=== PATIENT | female | born 1990 | race Caucasian/White ===

== ENCOUNTER 2019-02-28 16:41 | Emergency (ER) | payer MEDICAID, OTHER ==
[~2019-02-28] VITALS: Ht 160 cm; Wt 59.1 kg
[~2019-02-28 16:41] MED LIST: NO HOME MEDS; ONDA8TAB9 PO
[2019-02-28 17:00] VITALS: BP 152/92
[2019-02-28 17:39] LABS: CLARITY,URINE CLOUDY (Clear); COLOR,URINE YELLOW (Yellow); GLUCOSE, URINE NEGATIVE (Neg); KETONES,URINE >=80 mg/dl (Neg); LEUKOCYTE ESTERASE ,URINE MODERATE (Neg); NITRITES, URINE NEGATIVE (Neg); OCCULT BLOOD,URINE TRACE-INTACT (Neg); PH,URINE 8.5 (4.8-8.0); PROTEIN,URINE 100 mg/dl (Neg); UROBILINOGEN,URINE 0.2 E.U/dL (0.2-1.0)
[2019-02-28 17:43] LABS: URINE HCG NEGATIVE (NEG)
[2019-02-28 17:53] LABS: UA COLLECTION TYPE CLN CATCH MIDSTREAM
[2019-02-28 18:00] LABS: BACTERIA,URINE 1+ /HPF (Neg); MUCUS STRANDS MODERATE /LPF (Neg); RBC,URINE 0-2 /HPF (0-2); SQUAMOUS EPITHELIAL CELL,UR MANY /LPF (FEW); WBC,URINE 50-100 /HPF (0-4)
[2019-02-28 19:04] LABS: CLARITY,URINE CLOUDY (Clear); COLOR,URINE YELLOW (Yellow); GLUCOSE, URINE NEGATIVE (Neg); KETONES,URINE 40 mg/dl (Neg); LEUKOCYTE ESTERASE ,URINE TRACE (Neg); OCCULT BLOOD,URINE LARGE (Neg); PROTEIN,URINE 100 mg/dl (Neg); UROBILINOGEN,URINE 0.2 E.U/dL (0.2-1.0)
[2019-02-28 19:09] LABS: UA COLLECTION TYPE CLN CATCH MIDSTREAM
[2019-02-28 19:12] LABS: NITRITES, URINE NEGATIVE (Neg)
[2019-02-28 19:15] LABS: BACTERIA,URINE 2+ /HPF (Neg); MUCUS STRANDS MODERATE /LPF (Neg); SQUAMOUS EPITHELIAL CELL,UR MODERATE /LPF (FEW)
[2019-02-28 19:16] LABS: WBC,URINE 50-100 /HPF (0-4)
[2019-02-28] MEDS ORDERED: PHEN-716 PO (19:53)
[2019-02-28] MEDS ORDERED: SULF1TAB49 PO (19:53)
== END 2019-02-28 20:04 | disposition home or self-care (01) ==
LOC: ER 16:42
DX: N39.0 Urinary tract infection, site not specified (principal); Z79.899 Other long term (current) drug therapy; Z87.440 Personal history of urinary (tract) infections
CPT/HCPCS: 81001; 81025; 87077; 87088; 87186; 99283

== ENCOUNTER 2019-09-14 08:39 | Emergency (ER) | payer OTHER ==
[~2019-09-14] VITALS: Ht 160 cm; Wt 61.0 kg
[~2019-09-14 08:39] MED LIST changes: +PHEN-716 PO
[2019-09-14] MEDS ORDERED: normal saline 1000ML IV soln IVB ONE (09:10)
[2019-09-14] MEDS ORDERED: ketorolac tromethamine 15mg/ml inj. IV ONE (09:10)
[2019-09-14] MEDS ORDERED: ONDA4TAB6 PO (09:56)
[2019-09-14 09:59] LABS: HCG SERUM QL NEGATIVE
[2019-09-14 10:42] VITALS: BP 113/79
== END 2019-09-14 10:44 | disposition home or self-care (01) ==
LOC: ER 08:40
DX: S06.0X0A Concussion without loss of consciousness, initial encounter (principal); R42 Dizziness and giddiness; M54.2 Cervicalgia; F10.99 Alcohol use, unspecified with unspecified alcohol-induced disorder; Z79.899 Other long term (current) drug therapy; W11.XXXA Fall on and from ladder, initial encounter; Y93.89 Activity, other specified; Y92.89 Other specified places as the place of occurrence of the external cause; Y99.8 Other external cause status; Y90.9 Presence of alcohol in blood, level not specified
CPT/HCPCS: 36415; 70450; 84703; 96361; 96374; 99284; J1885; J7030

== ENCOUNTER 2019-11-17 15:13 | Emergency (ER) | payer OTHER ==
[~2019-11-17] VITALS: Ht 160 cm; Wt 61.0 kg
[~2019-11-17 15:13] MED LIST changes: +ONDA4TAB6 PO
[2019-11-17] MEDS ORDERED: ketorolac trometh. 30mg/ml inj. IV ONE (16:00)
[2019-11-17] MEDS ORDERED: ondansetron/PF 4mg/2ml inj IV ONE (16:00)
[2019-11-17] MEDS ORDERED: normal saline 1000ML IV soln IVB ONE (16:00)
[2019-11-17 16:25] LABS: BASOPHILS # (AUTO) 0.1 X10'3 (0-0.2); BASOPHILS % (AUTO) 0.9 % (0-1); EOSINOPHILS % (AUTO) 0.5 % (0-6); HEMOGLOBIN 15.5 g/dl (12.0-16.0); LYMPHOCYTES # (AUTO) 2.5 X10'3 (1.1-4.8); LYMPHOCYTES % (AUTO) 30.1 % (21-51); MEAN CORPUSCULAR HEMOGLOBIN 32.6 PG (27.0-31.0); MEAN CORPUSCULAR HGB CONC 34.4 g/dL (33.0-36.5); MEAN PLATELET VOLUME 9.3 FL (7.4-10.4); MONOCYTES # (AUTO) 0.4 X10'3 (0-0.9); MONOCYTES % (AUTO) 5.4 % (2-12); NEUTROPHILS # (AUTO) 5.2 X10'3 (1.8-7.7); NEUTROPHILS % (AUTO) 63.1 % (42-75); PLATELET COUNT 287 X10'3 (140-440); RED BLOOD COUNT 4.74 X10'6 (4.20-5.60); RED CELL DISTRIBUTION WIDTH 13.6 % (11.5-14.5); WHITE BLOOD COUNT 8.2 X10'3 (4.5-11.0)
[2019-11-17 16:40] LABS: ALANINE AMINOTRANSFERASE 52 U/L (12-78); ALBUMIN 4.8 G/DL (3.4-5.0); ALBUMIN/GLOBULIN RATIO 1.2 (1.1-1.5); ALKALINE PHOSPHATASE 85 IU/L (46-116); ANION GAP 11 (8-16); ASPARTATE AMINO TRANSFERASE 27 U/L (10-37); BILIRUBIN,TOTAL 1.1 MG/DL (0.1-1.0); BLOOD UREA NITROGEN 11 MG/DL (7-18); BUN/CREATININE RATIO 13.8 (6.6-38.0); CALCIUM 9.5 MG/DL (8.5-10.1); CHLORIDE 102 MMOL/L (99-107); GLUCOSE 78 MG/DL (70-104); SODIUM 139 MMOL/L (135-145); TOTAL CARBON DIOXIDE 26.2 MMOL/L (24-32); TOTAL PROTEIN 8.7 G/DL (6.4-8.2); eGFR 85 ML/MIN
[2019-11-17 17:09] VITALS: BP 137/72
[2019-11-17 17:20] LABS: URINE HCG NEGATIVE (NEG)
[2019-11-17 17:21] LABS: CLARITY,URINE CLEAR (Clear); COLOR,URINE YELLOW (Yellow); GLUCOSE, URINE NEGATIVE (Neg); KETONES,URINE 15 mg/dl (Neg); LEUKOCYTE ESTERASE ,URINE NEGATIVE (Neg); NITRITES, URINE NEGATIVE (Neg); OCCULT BLOOD,URINE NEGATIVE (Neg); PH,URINE 5.5 (4.8-8.0); PROTEIN,URINE NEGATIVE (Neg); UROBILINOGEN,URINE 0.2 E.U/dL (0.2-1.0)
[2019-11-17 17:25] LABS: UA COLLECTION TYPE CLN CATCH MIDSTREAM
== END 2019-11-17 17:16 | disposition home or self-care (01) ==
LOC: ER 15:14
DX: R11.2 Nausea with vomiting, unspecified (principal); R53.81 Other malaise; F10.99 Alcohol use, unspecified with unspecified alcohol-induced disorder; Z79.899 Other long term (current) drug therapy; Y90.9 Presence of alcohol in blood, level not specified
CPT/HCPCS: 36415; 80053; 81003; 81025; 85025; 96361; 96374; 96375; 99283; J1885; J2405; J7030

== ENCOUNTER 2020-03-22 16:49 | Emergency (ER) | payer SELFPAY ==
--- NOTE | 2020-03-22 17:20 | NUR ---
PER REG PT ICECKED IN AT 1649 AND TOLD THEM AT 1710 SHE IS LEAVING AND WILL GO TO [facility] TOMORROW.
== END 2020-03-22 17:23 | disposition left against medical advice (07) ==
LOC: ER 16:49
DX: L23.7 Allergic contact dermatitis due to plants, except food (principal); Z53.21 Procedure and treatment not carried out due to patient leaving prior to being seen by health care provider

== ENCOUNTER 2020-03-23 01:22 | Emergency (ER) | payer MEDICAID ==
[~2020-03-23] VITALS: Ht 160 cm; Wt 56.8 kg
[2020-03-23] MEDS ORDERED: dexamethasone 4mg/ml inj IM ONE (02:10)
[2020-03-23] MEDS ORDERED: triamcinolone acetonide 40mg/ml inj IM ONE (02:10)
[2020-03-23 02:21] VITALS: BP 136/93
== END 2020-03-23 02:23 | disposition home or self-care (01) ==
LOC: ER 01:23
DX: L23.7 Allergic contact dermatitis due to plants, except food (principal); Z87.440 Personal history of urinary (tract) infections
CPT/HCPCS: 96372; 99284; J1100; J3301